=== PATIENT | female | born 1985 | race Hispanic/Latino ===

== ENCOUNTER 2018-06-11 17:54 | Inpatient (IN) | payer BC ==
[2018-06-11] MEDS ORDERED: Morphine 4 MG/ML VIAL ONE (18:59)
[2018-06-11] MEDS ORDERED: Ondansetron PF 4 MG/2 ML Vial ONE (18:59)
[2018-06-11] MEDS ORDERED: hydrALAZINE 20 MG/ML VIAL SLOW IVP PRN (19:28)
[2018-06-11] MEDS ORDERED: Morphine 4 MG/ML VIAL SLOW IVP PRN ×2 (19:28)
[2018-06-11] MEDS ORDERED: Enoxaparin Sodium 40 MG/0.4 ML SYRINGE SC SCH (21:00)
[2018-06-11] MEDS ORDERED: Scopolamine 1.5 mg/72 hour Patch TD SCH (21:00)
[2018-06-11] MEDS: Sodium Chloride 0.9% 1,000 ML IV SCH (21:27)
[2018-06-11 21:53] VITALS: BMI 32.6
[2018-06-11] MEDS: Ketorolac Tromethamine 30 MG/ML VIAL IVP SCH (23:51)
[2018-06-11] MEDS: Acetaminophen 1,000 MG in Premix Bag 1 BAG IVPB SCH (23:51)
[2018-06-12] MEDS: Acetaminophen 1,000 MG in Premix Bag 1 BAG IVPB SCH (05:16)
[2018-06-12] MEDS: Ketorolac Tromethamine 30 MG/ML VIAL IVP SCH (05:16)
[2018-06-12] MEDS: Sodium Chloride 0.9% 1,000 ML IV SCH (05:16)
[2018-06-12 07:01] LABS: #Basophils 0.1 thou/uL (0.0-0.2); #Eosinphils 0.3 thou/uL (0.0-0.7); #Lymphocytes 3.3 thou/uL (1.20-3.40); #Monocytes 0.9 thou/uL (0.11-0.59); #Neutrophils 5.4 thou/uL (1.40-6.50); %Basophils 0.7 % (0.0-1.0); %Eosinophils 3.4 % (0.0-10.0); %Lymphocytes 32.8 % (21.0-51.0); %Monocytes 8.7 % (0.0-10.0); %Neutrophils 54.5 % (42.0-75.0); Hemoglobin 12.5 g/dL (12.0-16.0); Mean Corpuscular HGB CONC 33.7 g/dL (32.0-36.0); Mean Corpuscular Hemoglobin 29.3 pg (27.0-31.0); Mean Platelet Volume 7.6 fL (7.4-10.4); Platelet Count 280 thou/uL (130-400); RBC Distribution Width 11.6 % (11.5-14.5); Red Blood Cell (RBC) Count 4.27 mill/uL (4.20-5.40); White Blood Cell (WBC) Count 9.9 thou/uL (4.8-10.8)
[2018-06-12 07:24] LABS: ALT (SGPT) 17 U/L (8-55); AST (SGOT) 15 U/L (5-34); Albumin 3.8 g/dL (3.5-5.0); Alkaline Phosphatase 53 U/L (40-150); Anion Gap 12 mmol/L (10-20); BUN (Urea Nitrogen) 10 mg/dL (7.0-18.7); Bilirubin, Total 0.7 mg/dL (0.2-1.2); Calc. Creatinine Clearance 137 mL/min (70-130); Calcium 8.8 mg/dL (7.8-10.44); Carbon Dioxide 22 mmol/L (22-29); Chloride 107 mmol/L (98-107); Estimated GFR-MDRD Greater than 90; Globulin 3.2 g/dL (2.4-3.5); Glucose 99 mg/dL (70-105); Lipase 75 U/L (8-78); Potassium 3.6 mmol/L (3.5-5.1); Sodium 137 mmol/L (136-145)
--- NOTE | 2018-06-12 07:46 | HP ---
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 She has had numerous ultrasounds, 01/24/2017 and 01/22/2018, both of which were unremarkable. She had a CAT scan of the abdomen and pelvis on 01/24/2017 demonstrating pancreatitis. On this occasion, she had a severe episode of epigastric pain, right upper quadrant pain and ultrasound obtained on admission yesterday in emergency room revealed cholelithiasis, bile duct 4 mm. She has ongoing pain and tenderness. She had mild elevation of her lipase at 531. Liver function tests otherwise normal. CBC normal. This morning's lipase and liver function tests were pending. The patient was told by primary care physician in the past that it is the other causes of pancreatitis. The patient has typical biliary symptoms for the past several years and on this occasion, ultrasound demonstrates gallstones. Plan is for laparoscopic cholecystectomy and cholangiograms. Risks of infection, bleeding, visceral and biliary injury explained, and she consents. Plan to discharge home day postoperatively. ALLERGIES: NONE. SOCIAL HISTORY: Tobacco, none. Alcohol, rarely. MEDICATIONS: None routinely. PAST SURGICAL HISTORY: Tubal ligation. PAST MEDICAL HISTORY: Biliary symptoms with episodes of pancreatitis as noted above, otherwise noncontributory. Her was present during the interview. REVIEW OF SYSTEMS: Noncontributory 10-point. FAMILY HISTORY: Negative. PHYSICAL EXAMINATION: VITAL SIGNS: Height 5 feet, weight 167 pounds, 32 BMI, 98.3 degrees, pulse 76, 20 respiratory rate, blood pressure 105/74. HEAD, EARS, EYES, NOSE, AND THROAT: Unremarkable. Sclerae nonicteric. SKIN: Nonjaundiced. NEUROLOGICAL: Intact. No focal deficit. LUNGS: Clear to auscultation. CARDIAC: Regular rate and rhythm. No murmur or gallop. ABDOMEN: Soft, tenderness in right upper quadrant with mild guarding. EXTREMITIES: Unremarkable. No ankle edema. Good pulses. ASSESSMENT AND PLAN: Biliary pancreatitis. We will plan laparoscopic cholecystectomy and cholangiograms. Risk of infection, bleeding, visceral and biliary injury explained, and she consents. Past episodes of biliary symptoms clearly probably due to cholelithiasis, although ultrasounds were negative. Job ID: [id number]
[2018-06-12 08:13] VITALS: BP 97/61; TEMP 98
[2018-06-12] MEDS ORDERED: Iothalamate Meglumine 60% 50 ML VIAL FS ONE (08:37)
[2018-06-12] MEDS ORDERED: Bupivacaine HCl 0.5%/Epinephrine 1:200,000/PF 30 ml Vial ONE (08:37)
[2018-06-12] MEDS ORDERED: Famotidine/PF 20 mg/2ml Vial ONE (09:06)
[2018-06-12] MEDS ORDERED: Fentanyl 100 MCG/2 ML VIAL ONE ×7 (09:06→10:59)
[2018-06-12] MEDS ORDERED: Midazolam HCl 2 mg/2 ml Vial ONE (09:09)
[2018-06-12] MEDS ORDERED: traMADol HCl 50 MG TAB PO PRN ×2 (09:24)
[2018-06-12] MEDS ORDERED: Acetaminophen 500 MG TAB PO PRN (09:24)
[2018-06-12] MEDS ORDERED: Ibuprofen 600 MG TAB PO PRN (09:24)
[2018-06-12] MEDS ORDERED: Ondansetron ORAL SOLN. 4 MG/5 ML UDCUP PO PRN ×2 (09:38)
[2018-06-12] MEDS ORDERED: Ondansetron ODT 8 MG TAB SL PRN (09:38)
[2018-06-12] MEDS ORDERED: Ondansetron PF 4 MG/2 ML Vial IVP PRN (09:38)
[2018-06-12] MEDS ORDERED: Ondansetron ODT 4 MG TAB PO PRN (09:38)
[2018-06-12] MEDS ORDERED: Morphine Sulfate 2 MG/ML SYRINGE SLOW IVP PRN (10:14)
[2018-06-12] MEDS ORDERED: Ondansetron HCl/PF 4 MG/2 ML Vial IVP PRN (10:14)
[2018-06-12] MEDS ORDERED: PACU-Morphine 4MG/ML VIAL SLOW IVP PRN (10:14)
[2018-06-12] MEDS ORDERED: Morphine 4 MG/ML VIAL ONE (10:33)
[2018-06-12] MEDS ORDERED: Ondansetron PF 4 MG/2 ML Vial ONE (11:27)
[2018-06-12] MEDS ORDERED: Glycopyrrolate 0.2 MG/ML 5 ML SYRINGE ONE (11:27)
[2018-06-12] MEDS ORDERED: Lidocaine 1% PF 5 ML VIAL ONE (11:27)
[2018-06-12] MEDS ORDERED: Dexamethasone 20 MG/5 ML VIAL ONE (11:27)
[2018-06-12] MEDS ORDERED: Ketorolac Tromethamine 30 MG/ML VIAL ONE (11:27)
[2018-06-12] MEDS ORDERED: Metoclopramide HCl 10 MG/2 ML VIAL ONE (11:27)
[2018-06-12] MEDS ORDERED: PROPOFOL 200 MG/20 ML VIAL ONE (11:27)
--- NOTE | 2018-06-12 14:11 | OP ---
DATE OF PROCEDURE: 06/12/2018 PREOPERATIVE DIAGNOSES: Acute chronic cholecystitis, cholelithiasis, biliary pancreatitis. POSTOPERATIVE DIAGNOSES: Acute chronic cholecystitis, cholelithiasis, biliary pancreatitis. PROCEDURE PERFORMED: Laparoscopic video cholecystectomy, cholangiogram. ANESTHESIA: General, local of 0.5% Marcaine with epinephrine 30 mL. DESCRIPTION OF PROCEDURE: The patient was taken to the operating room, where under general anesthesia, abdomen was prepared with ChloraPrep and draped in routine fashion. Local anesthetic of 0.5% Marcaine with epinephrine was infiltrated in the skin and subcutaneous tissue about each port site, 30 mL volume used. Infraumbilical incision was made through an old scar and carried down the skin and subcutaneous tissue and Veress needle was placed. Pneumoperitoneum was established to 15 mmHg and Veress needle was removed, 5 mm port was placed, laparoscopic visualization used to place the remainder of the ports that were placed. Right subxiphoid incision was made and 11 port placed, right subcostal incision was made, midclavicular and anterior axillary lines and 5 mm port was placed. Liver appeared to be normal. Gallbladder slightly distended. Fundus was grasped at the cephalad. Infundibulum was grasped at the laterally. Omental adhesions were taken down. Cystic artery and duct dissected free. Critical view obtained. Cystic artery doubly clipped proximally. Cystic duct singly clipped on the gallbladder side. An opening made in the cystic duct. Cholangiocatheter was inserted and cholangiogram was obtained using fluoroscopy, revealing free flow of contrast in the duodenum without filling defects in the small caliber, common hepatic, common bile, and left and right hepatic ducts. Cholangiocatheter was removed. Cystic duct was not doubly clipped and artery and duct divided. Gallbladder was dissected free from liver bed obtaining good hemostasis prior to division of the final peritoneal attachments. Gallbladder and contents were removed. Good hemostasis was ensured with the cautery. Irrigant and pneumoperitoneum evacuated. All instruments were removed. All skin incisions were approximated with interrupted subdermal 4-0 Monocryl and [place] glue applied. Job ID: [id number]
--- NOTE | 2018-06-12 16:09 | DIS ---
DATE OF ADMISSION: 06/11/2018 DATE OF DISCHARGE: 06/12/2018 DISCHARGE DIAGNOSES: Cholecystitis, cholelithiasis, biliary pancreatitis. POSTOPERATIVE DIAGNOSES: Cholecystitis, cholelithiasis, biliary pancreatitis. PROCEDURE PERFORMED: Laparoscopic video cholecystectomy. HISTORY: A 33-year-old female, 6, 2-year-old and 14-year-old, who presents with recurrent abdominal pain. She has had this for the past 2 years. Two prior ultrasounds were normal. Previous CAT scan revealed changes consistent with pancreatitis last year. Ultrasound on this admission revealed gallstones, normal bile duct caliber. Normal liver function tests. Lipase slightly elevated. The patient was slightly tender. She is admitted overnight for intravenous fluids, antibiotics, underwent laparoscopic video cholecystectomy, normal cholangiograms. Postoperatively did well and convalesced. Discharged home with Tylenol, ibuprofen [id number] for pain, and Ultram, if necessary. Follow up in my office in 2 to 3 weeks. Diet and activity as tolerated without restrictions. Job ID: [id number]
--- NOTE | 2018-06-14 18:24 | RAD ---
X-RAY CHOLANGIOGRAM IN SURGERY: COMPARISON: Ultrasound from the prior day. FINDINGS: There is a single spot fluoroscopic image. Contrast is seen within the common bile duct, pancreatic duct, and proximal small bowel. IMPRESSION: Fluoroscopy for surgical use. POS: HOME
== END 2018-06-12 13:28 | disposition home or self-care (01) | DRG 419 ==
LOC: ERS 17:54 → SURG A 19:30
PROVIDERS: ADMIT Specialist; ATTEND Specialist
PROC: 0FT44ZZ Resection of Gallbladder, Percutaneous Endoscopic Approach (ICD-10-PCS; principal; 2018-06-11)
PROC: BF101ZZ Fluoroscopy of Bile Ducts using Low Osmolar Contrast (ICD-10-PCS; 2018-06-11)
DX: K80.12 Calculus of gallbladder with acute and chronic cholecystitis without obstruction (principal)
CPT/HCPCS: 36415; 47532; 80053; 83690; 85025; 88304; 96374; 96375; J0131; J0670; J1610; J1650; J1885; J1956; J2250; J2270; J2405; J3010; Q9961; S0028